=== PATIENT | female | born 1985 | race Caucasian/White ===

== ENCOUNTER 2017-05-31 15:21 | Emergency (ER) | payer MEDICAID ==
[~2017-05-31] VITALS: Ht 165.1 cm; Wt 70.8 kg
[2017-05-31 15:23] VITALS: BP 118/59
== END 2017-05-31 17:04 | disposition home or self-care (01) ==
LOC: ED 15:21
DX: L50.9 Urticaria, unspecified (principal)
CPT/HCPCS: J7512; Q0163

== ENCOUNTER 2017-10-03 16:31 | Emergency (ER) | payer MEDICAID ==
[~2017-10-03] VITALS: Ht 162.6 cm; Wt 72.6 kg
[2017-10-03 16:38] VITALS: BP 126/83
== END 2017-10-03 18:07 | disposition home or self-care (01) ==
LOC: ED 16:31
DX: J03.90 Acute tonsillitis, unspecified (principal); H60.92 Unspecified otitis externa, left ear; E05.00 Thyrotoxicosis with diffuse goiter without thyrotoxic crisis or storm; E07.9 Disorder of thyroid, unspecified; Z88.0 Allergy status to penicillin; Z88.6 Allergy status to analgesic agent